=== PATIENT | female | born 2000 | race Caucasian/White ===

== ENCOUNTER 2022-05-09 21:40 | Emergency (ER) | payer OTHER ==
[2022-05-09] MEDS ORDERED: Ketorolac Tromethamine 30 MG/ML VIAL ONE (22:24)
[2022-05-09] MEDS ORDERED: Ondansetron PF 4 MG/2 ML Vial ONE (22:24)
[2022-05-09 22:39] LABS: #Lymphocytes 1.9 thou/uL (1.20-3.40); #Monocytes 0.6 thou/uL (0.11-0.59); #Neutrophils 2.7 thou/uL (1.40-6.50); %Basophils 0.8 % (0.0-1.0); %Eosinophils 0.7 % (0.0-10.0); %Lymphocytes 36.4 % (28.0-48.0); %Monocytes 10.7 % (0.0-4.0); %Neutrophils 51.4 % (31.0-61.0); Hemoglobin 13.9 g/dL (12.0-16.0); Mean Corpuscular HGB CONC 33.5 g/dL (32.0-36.0); Mean Corpuscular Hemoglobin 31.8 pg (25.0-35.0); Mean Corpuscular Volume 94.8 fl (78.0-98.0); Mean Platelet Volume 8.8 fL (7.4-10.4); Platelet Count 173 10x3/uL (130-400); RBC Distribution Width 12.4 % (11.5-14.5); Red Blood Cell (RBC) Count 4.36 mill/uL (4.00-5.20); White Blood Cell (WBC) Count 5.3 10x3/uL (4.8-10.8)
[2022-05-09 23:19] LABS: ALT (SGPT) 18 U/L (8-55); AST (SGOT) 20 U/L (5-34); Albumin 4.5 g/dL (3.5-5.0); Alkaline Phosphatase 80 U/L (40-100); Anion Gap 14 mmol/L (10-20); BUN (Urea Nitrogen) 11 mg/dL (7.0-18.7); Bilirubin, Total 0.2 mg/dL (0.2-1.2); Calc. Creatinine Clearance 0 mL/min (70-130); Calcium 9.9 mg/dL (7.8-10.44); Carbon Dioxide 25 mmol/L (22-29); Chloride 106 mmol/L (98-107); Estimated GFR 96; Globulin 3.1 g/dL (2.4-3.5); Glucose 110 mg/dL (70-105); Potassium 3.7 mmol/L (3.5-5.1); Protein, Total 7.6 g/dL (6.0-8.3); Sodium 141 mmol/L (136-145)
== END 2022-05-09 23:14 | disposition home or self-care (01) ==
LOC: ERS 21:40
DX: S06.0X0A Concussion without loss of consciousness, initial encounter (principal); V89.2XXA Person injured in unspecified motor-vehicle accident, traffic, initial encounter
CPT/HCPCS: 70450; 80053; 85025; 96374; 96375; J1885; J2405